=== PATIENT | male | born 1945 | race Caucasian/White ===

== ENCOUNTER 2022-01-20 08:31 | Emergency (ER) | payer OTHER ==
[~2022-01-20] VITALS: Ht 177.8 cm; Wt 70.3 kg
[~2022-01-20 08:31] MED LIST: AMOCLA875 PO; ASPI81EC PO; CHOL10002 PO; INSLIS75I; LEVSOD75 PO; OMEP20ER PO; SILD50TA PO; TRAM50
[2022-01-20 09:41] LABS: BASOPHILS ABSOLUTE AUTO 0.05 K/mm3 (0.00-0.23); BASOPHILS PERCENT AUTO 1 % (0-2); EOSINOPHILS ABSOLUTE AUTO 0.31 K/mm3 (0.00-0.68); EOSINOPHILS PERCENT AUTO 5 % (0-6); Hemoglobin 14.6 g/dL (13.5-17.5); IMMATURE GRAN ABSOLUTE AUTO 0.01 K/mm3 (0.00-0.10); IMMATURE GRAN PERCENT AUTO 0 % (0-1); LYMPHOCYTES ABSOLUTE AUTO 1.17 K/mm3 (0.84-5.20); LYMPHOCYTES PERCENT AUTO 21 % (21-46); MONOCYTES ABSOLUTE AUTO 0.58 K/mm3 (0.16-1.47); MONOCYTES PERCENT AUTO 10 % (4-13); Mean Corpuscular HGB 30.4 pg (26.0-34.0); Mean Corpuscular HGB Conc 33.2 g/dL (31.5-36.5); Mean Corpuscular Volume 92 fL (80-100); Mean Platelet Volume 11.6 fL (9.1-12.4); NEUTROPHILS PERCENT AUTO 63 % (41-73); Platelet Count 175 K/mm3 (150-400); RDW Coefficient Variation 13.6 % (11.7-14.2); RDW Standard Deviation 46.2 fL (35.1-46.3); Red Blood Cell Count 4.81 M/mm3 (4.30-5.90); White Blood Cell Count 5.72 K/mm3 (4.00-11.30)
[2022-01-20 10:02] LABS: Albumin, Blood 3.7 g/dL (3.4-5.0); Albumin/Globulin Ratio 1.1 (0.8-1.8); Bilirubin, Total 0.6 mg/dL (0.1-1.0); Bun/Creatinine Ratio 27.9 (12.0-20.0); Calcium, Blood 9.2 mg/dL (8.5-10.1); Creatinine, Blood 0.9 mg/dL (0.60-1.20); Globulin, Blood 3.3 g/dL (2.2-4.0); Potassium, Blood 4.4 mmol/L (3.5-5.5)
[2022-01-20 10:08] LABS: Cholesterol 148 mg/dL (50-200); HDL Cholesterol 59 mg/dL (>39); Triglycerides 50 mg/dL (30-160)
[2022-01-20] MEDS ORDERED: FLUTICASONE-SA1 EAC1 INH (10:40)
[2022-01-20] MEDS ORDERED: AFRIN15 M6 NS (10:40)
[2022-01-20] MEDS ORDERED: LISI5 PO (10:40)
[2022-01-20] MEDS ORDERED: CLOP75 PO (12:13)
[2022-01-20] MEDS ORDERED: ATOR10 PO (12:13)
== END 2022-01-20 12:26 | disposition home or self-care (01) ==
LOC: ER 08:31
PROVIDERS: Emergency Medicine; Physician Assistant
DX: G45.9 Transient cerebral ischemic attack, unspecified (principal); E03.9 Hypothyroidism, unspecified; I10 Essential (primary) hypertension; E11.9 Type 2 diabetes mellitus without complications; Z79.899 Other long term (current) drug therapy; Z79.82 Long term (current) use of aspirin; Z88.5 Allergy status to narcotic agent
CPT/HCPCS: 70450; 70496; 70498; 80053; 82465; 82947; 83718; 83721; 84478; 85025; A9270; Q9967

== ENCOUNTER 2022-01-22 15:35 | Emergency (ER) | payer OTHER ==
[~2022-01-22] VITALS: Ht 177.8 cm; Wt 70.3 kg
[~2022-01-22 15:35] MED LIST changes: +AFRIN15 M6 NS; +ATOR10 PO; +CLOP75 PO; +FLUTICASONE-SA1 EAC1 INH; +LISI5 PO
[2022-01-22 16:11] LABS: BASOPHILS ABSOLUTE AUTO 0.05 K/mm3 (0.00-0.23); BASOPHILS PERCENT AUTO 1 % (0-2); EOSINOPHILS PERCENT AUTO 6 % (0-6); Hematocrit 44.8 % (37.0-53.0); IMMATURE GRAN ABSOLUTE AUTO 0.01 K/mm3 (0.00-0.10); IMMATURE GRAN PERCENT AUTO 0 % (0-1); LYMPHOCYTES ABSOLUTE AUTO 1.36 K/mm3 (0.84-5.20); LYMPHOCYTES PERCENT AUTO 21 % (21-46); MONOCYTES PERCENT AUTO 9 % (4-13); Mean Corpuscular HGB 30.1 pg (26.0-34.0); Mean Corpuscular HGB Conc 33.5 g/dL (31.5-36.5); Mean Corpuscular Volume 90 fL (80-100); Mean Platelet Volume 11.8 fL (9.1-12.4); NEUTROPHILS ABSOLUTE AUTO 4.03 K/mm3 (1.96-9.15); NEUTROPHILS PERCENT AUTO 62 % (41-73); Platelet Count 187 K/mm3 (150-400); RDW Coefficient Variation 13.6 % (11.7-14.2); RDW Standard Deviation 45.3 fL (35.1-46.3); Red Blood Cell Count 4.98 M/mm3 (4.30-5.90); White Blood Cell Count 6.45 K/mm3 (4.00-11.30)
[2022-01-22 16:27] LABS: Albumin, Blood 3.7 g/dL (3.4-5.0); Bilirubin, Total 0.5 mg/dL (0.1-1.0); Calcium, Blood 9.5 mg/dL (8.5-10.1); Creatinine, Blood 0.79 mg/dL (0.60-1.20); Globulin, Blood 3.6 g/dL (2.2-4.0); Potassium, Blood 4.2 mmol/L (3.5-5.5); Total Protein, Blood 7.3 g/dL (6.4-8.2)
== END 2022-01-22 17:47 | disposition home or self-care (01) ==
LOC: ER 15:35
PROVIDERS: Student in an Organized Health Care Education/Training Program
DX: R53.1 Weakness (principal); E03.9 Hypothyroidism, unspecified; I10 Essential (primary) hypertension; E11.9 Type 2 diabetes mellitus without complications; I25.10 Atherosclerotic heart disease of native coronary artery without angina pectoris; R42 Dizziness and giddiness; I65.22 Occlusion and stenosis of left carotid artery; Z88.5 Allergy status to narcotic agent; Z79.899 Other long term (current) drug therapy; Z79.82 Long term (current) use of aspirin; Z86.73 Personal history of transient ischemic attack (TIA), and cerebral infarction without residual deficits
CPT/HCPCS: 70450; 80053; 82947; 85025; A9270

== ENCOUNTER 2022-11-04 11:01 | Day surgery (SDC) | payer OTHER ==
[~2022-11-04] VITALS: Ht 177.8 cm; Wt 72.4 kg
[2022-11-04] MEDS ORDERED: CALCIUM 500-VI1 EAC4 (11:15)
[2022-11-04] MEDS ORDERED: SILD25T (11:15)
[2022-11-04] MEDS ORDERED: MAGNESIUM OXID500 MG (11:15)
[2022-11-04] MEDS ORDERED: AMIT25 (11:16)
[2022-11-04] MEDS ORDERED: Vitamin C100 M1 (11:16)
== END 2022-11-04 12:18 | disposition home or self-care (01) ==
LOC: ORSCSDS 11:01
PROVIDERS: Student in an Organized Health Care Education/Training Program
PROC: 0DB58ZX Excision of Esophagus, Via Natural or Artificial Opening Endoscopic, Diagnostic (ICD-10-PCS; principal; 2022-11-04 15:00)
DX: R13.10 Dysphagia, unspecified (principal); Z86.73 Personal history of transient ischemic attack (TIA), and cerebral infarction without residual deficits; Z85.89 Personal history of malignant neoplasm of other organs and systems; Z85.810 Personal history of malignant neoplasm of tongue; E03.9 Hypothyroidism, unspecified; K21.9 Gastro-esophageal reflux disease without esophagitis; Z87.891 Personal history of nicotine dependence; Z79.82 Long term (current) use of aspirin; Z79.899 Other long term (current) drug therapy
CPT/HCPCS: 88305; 88312; J0330; J0461; J2001; J2405; J2704; J7120; Q9968

== ENCOUNTER 2022-12-02 18:10 | Observation (INO) | payer OTHER ==
[~2022-12-02] VITALS: Ht 177.8 cm; Wt 69.7 kg
[~2022-12-02 18:10] MED LIST changes: +AMIT25; +CALCIUM 500-VI1 EAC4; +MAGNESIUM OXID500 MG; +SILD25T; +Vitamin C100 M1
[2022-12-02] MEDS ORDERED: Prinivil10 MG PO (18:35)
[2022-12-02 18:54] LABS: BASOPHILS ABSOLUTE AUTO 0.04 K/mm3 (0.00-0.23); BASOPHILS PERCENT AUTO 1 % (0-2); EOSINOPHILS ABSOLUTE AUTO 0.09 K/mm3 (0.00-0.68); EOSINOPHILS PERCENT AUTO 1 % (0-6); Hemoglobin 13.9 g/dL (13.5-17.5); IMMATURE GRAN ABSOLUTE AUTO 0.01 K/mm3 (0.00-0.10); IMMATURE GRAN PERCENT AUTO 0 % (0-1); LYMPHOCYTES ABSOLUTE AUTO 0.85 K/mm3 (0.84-5.20); LYMPHOCYTES PERCENT AUTO 13 % (21-46); MONOCYTES ABSOLUTE AUTO 0.35 K/mm3 (0.16-1.47); MONOCYTES PERCENT AUTO 5 % (4-13); Mean Corpuscular HGB 30.3 pg (26.0-34.0); Mean Corpuscular HGB Conc 33.9 g/dL (31.5-36.5); Mean Corpuscular Volume 89 fL (80-100); Mean Platelet Volume 11.8 fL (9.1-12.4); NEUTROPHILS ABSOLUTE AUTO 5.25 K/mm3 (1.96-9.15); NEUTROPHILS PERCENT AUTO 80 % (41-73); Platelet Count 180 K/mm3 (150-400); RDW Coefficient Variation 13.1 % (11.7-14.2); RDW Standard Deviation 42.7 fL (35.1-46.3); Red Blood Cell Count 4.59 M/mm3 (4.30-5.90); White Blood Cell Count 6.59 K/mm3 (4.00-11.30)
[2022-12-02 19:11] LABS: Albumin, Blood 3.4 g/dL (3.4-5.0); Albumin/Globulin Ratio 1.2 (0.8-1.8); Bilirubin, Total 0.6 mg/dL (0.1-1.0); Bun/Creatinine Ratio 32.6 (12.0-20.0); Calcium, Blood 8.8 mg/dL (8.5-10.1); Creatinine, Blood 0.77 mg/dL (0.60-1.20); Globulin, Blood 2.9 g/dL (2.2-4.0); Potassium, Blood 4.4 mmol/L (3.5-5.5); Total Protein, Blood 6.3 g/dL (6.4-8.2)
[2022-12-02 23:55] LABS: International Normalized Ratio 1.09; Prothrombin Time Results 11.4 Sec (9.7-11.5)
[2022-12-03 01:17] VITALS: BP 150/72
[2022-12-03 01:39] VITALS: BP 140/63
[2022-12-03 06:04] LABS: Albumin, Blood 2.8 g/dL (3.4-5.0); Bilirubin, Total 0.6 mg/dL (0.1-1.0); Bun/Creatinine Ratio 28.1 (12.0-20.0); Calcium, Blood 8.1 mg/dL (8.5-10.1); Creatinine, Blood 0.71 mg/dL (0.60-1.20); Globulin, Blood 2.8 g/dL (2.2-4.0); Potassium, Blood 4.1 mmol/L (3.5-5.5); Total Protein, Blood 5.6 g/dL (6.4-8.2)
--- NOTE | 2022-12-03 06:42 | NUR ---
SHIFT SUMMARY PT ADMITTED FROM ED, REPORT FROM SHARON, PT BROUGHT TO ROOM VIA GURNEY, PT ABLE TO STAND AND WALK WITH SBA- PT REPORTED DIZZINESS STILL THERE BUT TOLERABLE, PT DENIED NAUSEA, CALL FROM TELE THAT PT HR DOWN TO 42 BPM T/O NIGHT, PT RESTING- NO S/S DISTRESS/PAIN- BED LOW POSITION, CALL LIGHT WITHIN REACH
[2022-12-03 07:03] LABS: BASOPHILS ABSOLUTE AUTO 0.05 K/mm3 (0.00-0.23); BASOPHILS PERCENT AUTO 1 % (0-2); EOSINOPHILS PERCENT AUTO 3 % (0-6); Hematocrit 42.3 % (37.0-53.0); Hemoglobin 13.5 g/dL (13.5-17.5); IMMATURE GRAN ABSOLUTE AUTO 0.01 K/mm3 (0.00-0.10); IMMATURE GRAN PERCENT AUTO 0 % (0-1); LYMPHOCYTES ABSOLUTE AUTO 1.22 K/mm3 (0.84-5.20); LYMPHOCYTES PERCENT AUTO 20 % (21-46); MONOCYTES ABSOLUTE AUTO 0.77 K/mm3 (0.16-1.47); MONOCYTES PERCENT AUTO 12 % (4-13); Mean Corpuscular HGB Conc 31.9 g/dL (31.5-36.5); Mean Corpuscular Volume 94 fL (80-100); Mean Platelet Volume 11.9 fL (9.1-12.4); NEUTROPHILS ABSOLUTE AUTO 3.96 K/mm3 (1.96-9.15); NEUTROPHILS PERCENT AUTO 64 % (41-73); Platelet Count 153 K/mm3 (150-400); RDW Coefficient Variation 13.2 % (11.7-14.2); RDW Standard Deviation 45.4 fL (35.1-46.3); White Blood Cell Count 6.21 K/mm3 (4.00-11.30)
[2022-12-03 08:26] LABS: CHOL/HDL RATIO 2.8; Cholesterol 124 mg/dL (50-200); Free Thyroxine 1.24 ng/dL (0.70-1.60); HDL Cholesterol 44 mg/dL (>39); LDL/HDL RATIO 1.6; Low Density Lipoprotein Chol 72 mg/dL (0-110); Triglycerides 40 mg/dL (30-160); Triiodothyronine, Free 2.04 pg/mL (2.18-3.98); Very Low Density Lipoprot Chol 8 mg/dL (6-32)
[2022-12-03 08:32] VITALS: BP 147/72
[2022-12-03 15:46] VITALS: BP 122/65
--- NOTE | 2022-12-03 16:31 | NUR ---
SHIFT SUMMARY PATIENT REPORTS DECREASE IN DIZZINESS, MOSTLY WHEN HE BENDS OVER OR TURNS HIS HEAD WHICH IS HIS BASELINE. HE DENIES ANY OTHER PAIN OR DISCOMFORT. PLAN IS TO DISCHARGE TODAY TO HOME. BED IN LOW POSITION, CALL LIGHT IN REACH. PATIENT CALLS APPROPRIATELY. WILL CONTINUE TO MONITOR.
[2022-12-03] MEDS ORDERED: ATOR40TA PO (16:45)
[2022-12-03] MEDS ORDERED: MECL12.5 PO (16:48)
--- NOTE | 2022-12-03 17:59 | NUR ---
DISCHARGE SUMMARY PATIENT EDUCATION AND DISCHARGE PACKET GIVEN TO PATIENT. SIGNATURE OBTAINED. PATIENT LEFT UNIT VIA WHEELCHAIR WITH FARHAN HERRERA AT 1724 ON 12/03/22.
== END 2022-12-03 17:25 | disposition home or self-care (01) ==
LOC: ER 18:10 → MEDS 18:11
PROVIDERS: Student in an Organized Health Care Education/Training Program; ADMIT Student in an Organized Health Care Education/Training Program
DX: R42 Dizziness and giddiness (principal); I65.22 Occlusion and stenosis of left carotid artery; I10 Essential (primary) hypertension; E03.9 Hypothyroidism, unspecified; E11.9 Type 2 diabetes mellitus without complications; Z88.5 Allergy status to narcotic agent; Z79.890 Hormone replacement therapy; Z79.899 Other long term (current) drug therapy; Z79.82 Long term (current) use of aspirin; Z79.51 Long term (current) use of inhaled steroids; Z86.73 Personal history of transient ischemic attack (TIA), and cerebral infarction without residual deficits
CPT/HCPCS: 36415; 70450; 70551; 80053; 80061; 82947; 84439; 84443; 84481; 84484; 85025; 85610; 85730; 86850; 86900; 86901; 93005; 93010; 93306; 96372; 96374; 99285-25; A9270; G0378; J1650; J2765; J7030